=== PATIENT | male | born 1995 | race Caucasian/White ===

== ENCOUNTER 2017-03-23 06:46 | Emergency (ER) | payer SELFPAY ==
[2017-03-23] MEDS ORDERED: DICL100G18 TP (07:27)
--- NOTE | 2017-03-23 07:44 | PHYS DOC ---
Adult General Chief Complaint Chief Complaint: knee pain HPI HPI Patient is a 21 year old M who presents with right-sided knee pain that began just prior to arrival after bending over to pick up attendant her keys from the floor. He feels that his symptoms are worse when his leg is straightened and improved when his legs bent. He describes the pain as dull constant mild in intensity and located on the right lateral knee. His pain does not radiate and is not associated with any other symptoms. Review of Systems Review of Systems Constitutional: Denies fever or chills [] Eyes: Denies change in visual acuity, redness, or eye pain [] HENT: Denies nasal congestion or sore throat [] Respiratory: Denies cough or shortness of breath [] Cardiovascular: No additional information not addressed in HPI [] GI: Denies abdominal pain, nausea, vomiting, bloody stools or diarrhea [] : Denies dysuria or hematuria [] Musculoskeletal: Denies back pain Integument: Denies rash or skin lesions [] Neurologic: Denies headache, focal weakness or sensory changes [] Endocrine: Denies polyuria or polydipsia [] All other systems were reviewed and found to be within normal limits, except as documented in this note. Family History Family History Noncontributory Current Medications Current Medications Medications reviewed Allergies Allergies No known allergies Physical Exam Physical Exam Constitutional: Well developed, well nourished, no acute distress, non-toxic appearance. [] HENT: Normocephalic, atraumatic, Eyes: EOMI, conjunctiva normal, no discharge. [] Cardiovascular:Heart rate regular rhythm, no murmur [] Lungs & Thorax: Bilateral breath sounds clear to auscultation [] Abdomen: Bowel sounds normal, soft, no tenderness, no masses, no pulsatile masses. [] Skin: Warm, dry, no erythema, no rash. [] Extremities: no cyanosis, no clubbing, ROM intact Exam limited to the right knee Inspection: Mild edema noted without signs of deformity or other injury Palpation: Mild tenderness to palpation on the lateral knee over the LCL ROM: Normal active and passive range of motion. Pain with active extension only Strength: Limited due to pain Neuro/vasc: Intact Neurologic: Alert and oriented X 3, normal motor function, normal sensory function, no focal deficits noted. [] Psychologic: Affect normal, judgement normal, mood normal. [] Current Patient Data Vital Signs Normal vital signs. Please nursing documentation for specifics EKG EKG [] Radiology/Procedures Radiology/Procedures Imaging was declined Course & Med Decision Making Course & Med Decision Making Pertinent Labs and Imaging studies reviewed. (See chart for details) [] Dragon Disclaimer Dragon Disclaimer This electronic medical record was generated, in whole or in part, using a voice recognition dictation system. Departure Departure: Impression: Primary Impression: Knee LCL sprain Disposition: HOME, SELF-CARE Condition: STABLE Referrals: PCP,NO (PCP) Patient Instructions: Knee Exercises, Generic, SportsMed, Knee Sprain Additional Instructions: Salty was seen in the emergency department for knee pain. No emergency medical condition was found on history or physical exam. His symptoms are most consistent with a ligament sprain and/or tendon strain. He is given a prescription for Voltaren gel and advised consider lidocaine patches for pain. He is encouraged to bear weight as possible and continue range of motion activities. He was advised to have cautioned with side to side and twisting movements. He was also advised follow-up with his primary care doctor in the next week for further management. Scripts Diclofenac Sodium (VOLTAREN) 100 Gm Gel..gram. 1 GM TP QID, #100 GM 2 Refills Prov: SOULEYMANE MARCUM MD 03/23/17 Problem Qualifiers Primary Impression: Knee LCL sprain Encounter type: initial encounter Laterality: right Qualified Codes: S83.421A - Sprain of lateral collateral ligament of right knee, initial encounter SOULEYMANE MARCUM MD Mar 23, 2017 07:44
[2017-03-23 07:49] VITALS: BP 144/82
== END 2017-03-23 07:49 | disposition home or self-care (01) ==
LOC: ER 06:46
DX: S83.421A Sprain of lateral collateral ligament of right knee, initial encounter (principal); X50.9XXA Other and unspecified overexertion or strenuous movements or postures, initial encounter; Y93.89 Activity, other specified; Y99.8 Other external cause status; Y92.89 Other specified places as the place of occurrence of the external cause
CPT/HCPCS: 99283